=== PATIENT | female | born 1970 | race Two or more races ===

== ENCOUNTER 2024-02-01 14:27 | Outpatient (CLI) | payer OTHER | END 2024-02-01 14:28 | disposition home or self-care (01) | LOC: SONOGRAMA 14:27 | PROVIDERS: ATTEND Pathology Anatomic Pathology & Clinical Pathology | DX: D44.0 Neoplasm of uncertain behavior of thyroid gland (principal); D34 Benign neoplasm of thyroid gland; E07.89 Other specified disorders of thyroid; E04.2 Nontoxic multinodular goiter ==

== ENCOUNTER 2024-03-24 11:04 | Outpatient (CLI) | payer OTHER | END 2024-03-24 11:07 | disposition home or self-care (01) | LOC: SONOGRAMA 11:04 | PROVIDERS: ATTEND Pathology Anatomic Pathology & Clinical Pathology | DX: D44.0 Neoplasm of uncertain behavior of thyroid gland (principal); E04.2 Nontoxic multinodular goiter ==

== ENCOUNTER 2025-03-07 11:45 | Inpatient (IN) | payer OTHER ==
[~2025-03-07] VITALS: Ht 167.6 cm; Wt 74.8 kg
[2025-03-07 13:39] VITALS: BP 107/70
[2025-03-07 13:44] VITALS: BP 113/78
[2025-03-14] MEDS ORDERED: DEXAMETHASONE SODIUM PHOSPHATE 4 MG/ML VIAL ONE (07:06)
[2025-03-14] MEDS ORDERED: PANTOPRAZOLE SO40 MG (07:43)
[2025-03-14] MEDS ORDERED: FAMOTIDINE40 MG (07:43)
[2025-03-14] MEDS ORDERED: MORPHINE SULFATE 4 MG/ML VIAL IV ONE ×2 (10:15→10:45)
[2025-03-14] MEDS ORDERED: ENALAPRILAT DIHYDRATE 1.25 MG/ML VIAL IV PRN (10:30)
[2025-03-14] MEDS ORDERED: ONDANSETRON HCL 2 MG/ML VIAL IV PRN (10:30)
[2025-03-14 15:30] VITALS: BP 92/56; O2SAT 97
[2025-03-14] MEDS ORDERED: DIPHENHYDRAMINE HCL 12.5 MG/5 ML BLIST.PACK PO ONE (15:44)
[2025-03-14] MEDS ORDERED: MAG HYDROX/ALUMINUM HYD/SIMETH 30 ML BLIST.PACK PO ONE (15:44)
[2025-03-14] MEDS ORDERED: TRAMADOL HCL 50 MG TABLET PO SCH (17:00)
[2025-03-14] MEDS ORDERED: CYCLOBENZAPRINE HCL 5 MG TABLET PO SCH (17:00)
[2025-03-14] MEDS ORDERED: DIPHENHYDRAMINE HCL 75 MG,LIDOCAINE HCL 30 ML,MAG HYDROX/ALUMINUM HYD/SIMETH 30 ML PO SCH (17:00)
[2025-03-14] MEDS ORDERED: ACETAMINOPHEN 500 MG GEL..CAP PO SCH (17:00)
[2025-03-14] MEDS ORDERED: DIPHENHYDRAMINE HCL 30 MG,LIDOCAINE HCL 30 ML,MAG HYDROX/ALUMINUM HYD/SIMETH 30 ML PO SCH (17:00)
[2025-03-14] MEDS ORDERED: CALCITRIOL 0.5 MCG CAPSULE PO SCH (17:00)
[2025-03-14] MEDS ORDERED: Calcium Carbonate 1 TAB TABLET PO SCH (21:00)
[2025-03-14] MEDS ORDERED: PANTOPRAZOLE SODIUM 40 MG/VIAL VIAL IV PUSH SCH (21:00)
[2025-03-16] MEDS ORDERED: LEVOTHYROXINE SODIUM 112 MCG TABLET PO SCH (06:00)
== END 2025-03-15 09:10 | disposition home or self-care (01) | DRG 627 ==
LOC: SURH 03-13 11:00 → O/R 03-14 05:26 → SURG 03-14 14:55
PROVIDERS: ADMIT Surgery; ATTEND Surgery
PROC: 07T10ZZ Resection of Right Neck Lymphatic, Open Approach (ICD-10-PCS; 2025-03-14)
PROC: 0GTG0ZZ Resection of Left Thyroid Gland Lobe, Open Approach (ICD-10-PCS; principal; 2025-03-14 07:00)
DX: C73 Malignant neoplasm of thyroid gland (principal); E04.2 Nontoxic multinodular goiter